=== PATIENT | male | born 1970 | race Caucasian/White ===

== ENCOUNTER 2017-07-19 03:19 | Emergency (ER) | payer OTHER ==
[~2017-07-19] VITALS: Ht 172.7 cm; Wt 72.8 kg
[~2017-07-19 03:19] MED LIST: Aspirin E.C. PO; DILAUDID4 MG PO; DOCUSATE SODIU100 MG PO; LIPITOR40 MG PO; NOHOMEMEDS; PROTONIX40 MG PO; TYLENOL EXTRA500 MG PO; ZOFRAN4 MG PO
[2017-07-19 03:58] LABS: HEMATOCRIT 44.5 % (38.0-50.0); MCH 28.2 PG (29.0-34.0); MCHC 35.5 G/DL (30.0-36.0); MCV 79.5 FL (86-99); MEAN PLAT.VOLUME 8.4 uM^3 (9.0-12.4); PLATELET COUNT 354 K/uL (156-360); RBC DIS.WIDTH-CV 12.2 % (11.8-14.6); RBC DIS.WIDTH-SD 34.8 % (39-53); WHITE BLOOD COUNT 12.7 K/uL (4.1-10.2)
[2017-07-19 04:04] LABS: CHLORIDE 104 mEq/L (99-109); POTASSIUM 3.9 mEq/L (3.7-5.4); SODIUM 137 mEq/L (136-147)
[2017-07-19 04:06] LABS: GLUCOSE 111 mg/dL (70-99)
[2017-07-19 04:07] LABS: ANION GAP 12 MEQ/L (2-14)
[2017-07-19 04:08] LABS: TOTAL BILIRUBIN 0.7 mg/dL (0.0-1.0)
[2017-07-19 04:10] LABS: ALKALINE PHOSPHATASE 91 IU/L (3-129); GFR ESTIMATE (CALCULATED) > 59 mL/min/
[2017-07-19 04:11] LABS: UREA NITROGEN (BUN) 11 mg/dL (9-23)
[2017-07-19 04:13] LABS: LIPASE 57 U/L (1.0-51.0)
[2017-07-19 04:19] LABS: ADD MIUA? NO; BILIRUBIN NEGATIVE; BLOOD NEGATIVE; COLOR STRAW ((YELLOW)); GLUCOSE (STRIP) NEGATIVE; KETONES NEGATIVE; LEUKOCYTES NEGATIVE; NITRITE NEGATIVE; PROTEIN (STRIP) NEGATIVE; SPECIFIC GRAVITY 1.004 (1.000-1.030); UCUL ADDED? NO; UROBILINOGEN 0.2 MG/DL (0.2-1.0)
[2017-07-19] MEDS ORDERED: ZOFRAN4 MG PO (05:15)
[2017-07-19] MEDS ORDERED: PERCOCET 5/31 TABLET PO (05:15)
[2017-07-19] MEDS ORDERED: CARAFATE1 GM PO (05:40)
[2017-07-19 05:56] VITALS: BP 160/78
== END 2017-07-19 05:57 | disposition home or self-care (01) ==
LOC: EME 03:19
DX: R10.13 Epigastric pain (principal); Z86.73 Personal history of transient ischemic attack (TIA), and cerebral infarction without residual deficits; Z85.828 Personal history of other malignant neoplasm of skin; F17.200 Nicotine dependence, unspecified, uncomplicated
CPT/HCPCS: 74177; 80053; 81003; 83690; 85027; 99281; 99284; J2405; J7030; S0028